=== PATIENT | female | born 2000 | race Caucasian/White ===

== ENCOUNTER 2019-07-28 01:15 | Emergency (ER) | payer BC ==
[~2019-07-28] VITALS: Ht 177.8 cm; Wt 60.5 kg
[2019-07-28 01:27] VITALS: BP 116/75; TEMP 98.2
[2019-07-28] MEDS ORDERED: KAPSPARGO SPRIN25 MG PO (01:56)
[2019-07-28] MEDS ORDERED: SINGULAIR 110 MG/TAB PO (01:56)
[2019-07-28 02:23] LABS: BASO % 0.7 % (0.0-2.0); EOS % 0.5 % (0-4.0); GRAN # 3.7 (1.4-6.5); GRAN % 62.8 % (42.2-75.2); HEMOGLOBIN 14.3 g/dl (12.0-15.0); LYMPH # 1.7 (1.2-3.4); LYMPH % 29.3 % (20.0-51.0); MEAN CELL VOLUME 90 fl (80.0-95.0); MEAN CORPUSCULAR HEMOGLOBIN 30 pg (26.0-32.0); MEAN CORPUSCULAR HGB CONC 33 g/dl (33.0-37.0); MEAN PLATELET VOLUME 10.7 fl (7.4-10.4); MONO # 0.4 (0.1-0.6); MONO % 6.5 % (1.7-9.3); PLATELET COUNT 208 K/mm3 (130-400); RED BLOOD COUNT 4.79 M/mm3 (4.10-5.30); REDCELL DISTRIBUTION WIDTH-CV 12.5 % (11.5-14.5)
[2019-07-28 02:32] LABS: INR 1.1 (0.8-3.0)
[2019-07-28 02:33] LABS: ALANINE AMINOTRANSFERASE 22 U/L (9-52); ALBUMIN 4.8 gm/dL (3.5-5.0); ALCOHOL(ethanol),MEDICAL 150 mg/dL; ALKALINE PHOSPHATASE 57 U/L (50-136); ANION GAP 12 mmol/L (7-16); AST,SGOT 22 U/L (15-37); BILIRUBIN,TOTAL 0.5 mg/dL (0.0-1.0); BLOOD UREA NITROGEN 9 mg/dL (7-17); CALCIUM 9.6 mg/dL (8.4-10.2); CARBON DIOXIDE 26 mmol/L (22-30); CHLORIDE 105 mmol/L (98-107); CREATININE, serum 0.71 (0.52-1.25); GLUCOSE 97 mg/dL (74-106); POTASSIUM 3.5 mmol/L (3.4-5.0); SODIUM 143 mmol/L (137-145); TOTAL PROTEIN 7.7 gm/dL (6.4-8.2)
[2019-07-28 02:49] LABS: PROLACTIN 34.1 ng/mL (3.0-18.6)
[2019-07-28 03:01] LABS: D-DIMER < 200.00 ng/mLDDu (200-230)
[2019-07-28 03:13] LABS: TROPONIN-I < 0.012 ng/mL (0.000-0.035)
[2019-07-28 04:49] VITALS: PULSE 85
== END 2019-07-28 04:49 | disposition home or self-care (01) ==
LOC: COL.ER 01:15
PROVIDERS: Emergency Medicine
DX: F10.129 Alcohol abuse with intoxication, unspecified (principal); G40.89 Other seizures; Y90.6 Blood alcohol level of 120-199 mg/100 ml
CPT/HCPCS: J2060; J2405; J7030

== ENCOUNTER 2019-08-09 22:51 | Emergency (ER) | payer BC ==
[~2019-08-09] VITALS: Ht 177.8 cm; Wt 60.5 kg
[~2019-08-09 22:51] MED LIST: KAPSPARGO SPRIN25 MG PO; SINGULAIR 110 MG/TAB PO
[2019-08-09] MEDS ORDERED: ZITHROMAX500 M2 PO (23:00)
[2019-08-09] MEDS ORDERED: BIRTH CONTROL (23:01)
[2019-08-09] MEDS ORDERED: PROAIR HFA0.09 MG/AC IH (23:01)
[2019-08-09 23:37] LABS: BASO % 0.3 % (0.0-2.0); EOS # 0.1 (0.0-0.7); EOS % 0.9 % (0-4.0); GRAN # 6.4 (1.4-6.5); GRAN % 66.4 % (42.2-75.2); HEMOGLOBIN 11.8 g/dl (12.0-15.0); LYMPH # 2.2 (1.2-3.4); LYMPH % 23.1 % (20.0-51.0); MEAN CELL VOLUME 89 fl (80.0-95.0); MEAN CORPUSCULAR HEMOGLOBIN 30 pg (26.0-32.0); MEAN CORPUSCULAR HGB CONC 34 g/dl (33.0-37.0); MEAN PLATELET VOLUME 10.4 fl (7.4-10.4); MONO # 0.9 (0.1-0.6); MONO % 8.9 % (1.7-9.3); PLATELET COUNT 231 K/mm3 (130-400); RED BLOOD COUNT 3.96 M/mm3 (4.10-5.30); REDCELL DISTRIBUTION WIDTH-CV 12.5 % (11.5-14.5)
[2019-08-09 23:44] LABS: HEMATOCRIT 35.1 % (35.0-45.0)
[2019-08-09 23:50] LABS: ALBUMIN 4.3 gm/dL (3.5-5.0); BILIRUBIN,TOTAL 0.3 mg/dL (0.0-1.0); CALCIUM 9.4 mg/dL (8.4-10.2); CREATININE, serum 0.62 (0.52-1.25); POTASSIUM 3.6 mmol/L (3.4-5.0); TOTAL PROTEIN 7.6 gm/dL (6.4-8.2)
[2019-08-10 01:12] VITALS: BP 111/62; PULSE 94; TEMP 98.7
[2019-08-11] MEDS ORDERED: OMNICEF 300MG300 MG PO (12:19)
[2019-08-11] MEDS ORDERED: ZOFRAN ODT8 MG PO (13:37)
== END 2019-08-10 01:12 | disposition home or self-care (01) ==
LOC: COL.ER 22:51
PROVIDERS: Emergency Medicine
DX: B34.9 Viral infection, unspecified (principal); J45.909 Unspecified asthma, uncomplicated
CPT/HCPCS: J2405; J3010; J7030

== ENCOUNTER 2019-08-11 09:52 | Emergency (ER) | payer BC ==
[~2019-08-11] VITALS: Ht 177.8 cm; Wt 60.5 kg
[~2019-08-11 09:52] MED LIST changes: +BIRTH CONTROL; +PROAIR HFA0.09 MG/AC IH; +ZITHROMAX500 M2 PO
[2019-08-11 09:56] VITALS: TEMP 97.6
[2019-08-11 10:35] LABS: BASO % 0.5 % (0.0-2.0); EOS # 0.2 (0.0-0.7); EOS % 2.3 % (0-4.0); GRAN # 4.1 (1.4-6.5); GRAN % 62.8 % (42.2-75.2); HEMOGLOBIN 11.8 g/dl (12.0-15.0); LYMPH # 1.8 (1.2-3.4); LYMPH % 27.5 % (20.0-51.0); MEAN CELL VOLUME 89 fl (80.0-95.0); MEAN CORPUSCULAR HEMOGLOBIN 31 pg (26.0-32.0); MEAN CORPUSCULAR HGB CONC 34 g/dl (33.0-37.0); MEAN PLATELET VOLUME 10.3 fl (7.4-10.4); MONO # 0.4 (0.1-0.6); MONO % 6.6 % (1.7-9.3); PLATELET COUNT 220 K/mm3 (130-400); RED BLOOD COUNT 3.86 M/mm3 (4.10-5.30); REDCELL DISTRIBUTION WIDTH-CV 12.5 % (11.5-14.5)
[2019-08-11 10:38] LABS: HEMATOCRIT 34.4 % (35.0-45.0)
[2019-08-11 10:49] LABS: ALBUMIN 4.1 gm/dL (3.5-5.0); BILIRUBIN,TOTAL 0.4 mg/dL (0.0-1.0); CALCIUM 9.2 mg/dL (8.4-10.2); CREATININE, serum 0.67 (0.52-1.25); POTASSIUM 3.9 mmol/L (3.4-5.0)
[2019-08-11] MEDS ORDERED: OMNICEF 300MG300 MG PO (12:19)
[2019-08-11 13:36] VITALS: BP 120/83; PULSE 82
[2019-08-11] MEDS ORDERED: ZOFRAN ODT8 MG PO (13:37)
== END 2019-08-11 13:37 | disposition home or self-care (01) ==
LOC: COL.ER 09:52
PROVIDERS: Emergency Medicine
DX: J32.0 Chronic maxillary sinusitis (principal)
CPT/HCPCS: J1200; J1885; J2060; J2765; J7030

== ENCOUNTER 2019-10-29 15:35 | Emergency (ER) | payer BC ==
[~2019-10-29] VITALS: Ht 177.8 cm; Wt 61.4 kg
[~2019-10-29 15:35] MED LIST changes: +OMNICEF 300MG300 MG PO; +ZOFRAN ODT8 MG PO
[2019-10-29] MEDS ORDERED: DOXYCYCLINE HY100 MG PO (15:45)
[2019-10-29 16:27] LABS: BASO # 0.1 (0.0-0.2); BASO % 0.5 % (0.0-2.0); EOS # 0.1 (0.0-0.7); EOS % 0.5 % (0-4.0); GRAN % 76.9 % (42.2-75.2); HEMATOCRIT 38.9 % (35.0-45.0); HEMOGLOBIN 13.1 g/dl (12.0-15.0); LYMPH # 1.5 (1.2-3.4); LYMPH % 16.7 % (20.0-51.0); MEAN CELL VOLUME 88 fl (80.0-95.0); MEAN CORPUSCULAR HEMOGLOBIN 30 pg (26.0-32.0); MEAN CORPUSCULAR HGB CONC 34 g/dl (33.0-37.0); MEAN PLATELET VOLUME 10.5 fl (7.4-10.4); MONO # 0.5 (0.1-0.6); MONO % 5.3 % (1.7-9.3); PLATELET COUNT 203 K/mm3 (130-400); RED BLOOD COUNT 4.42 M/mm3 (4.10-5.30); REDCELL DISTRIBUTION WIDTH-CV 12.4 % (11.5-14.5)
[2019-10-29 17:01] LABS: ALBUMIN 4.6 gm/dL (3.5-5.0); BILIRUBIN,TOTAL 0.8 mg/dL (0.0-1.0); C-REACTIVE PROTEIN 1.4 mg/dL (0.0-0.9); CALCIUM 9.5 mg/dL (8.4-10.2); CREATININE, serum 0.71 (0.52-1.25); POTASSIUM 3.9 mmol/L (3.4-5.0); TOTAL PROTEIN 7.5 gm/dL (6.4-8.2)
[2019-10-29 17:14] LABS: PROLACTIN 37.1 ng/mL (3.0-18.6)
[2019-10-29 18:03] VITALS: TEMP 99.4
[2019-10-29 18:36] VITALS: BP 113/73; PULSE 77
== END 2019-10-29 18:36 | disposition home or self-care (01) ==
LOC: COL.ER 15:35
PROVIDERS: Physician Assistant
DX: I49.8 Other specified cardiac arrhythmias (principal); J45.909 Unspecified asthma, uncomplicated; Z90.89 Acquired absence of other organs; Z90.49 Acquired absence of other specified parts of digestive tract
CPT/HCPCS: J7030

== ENCOUNTER 2019-11-25 04:19 | Emergency (ER) | payer BC ==
[~2019-11-25] VITALS: Ht 177.8 cm; Wt 61.4 kg
[~2019-11-25 04:19] MED LIST changes: +DOXYCYCLINE HY100 MG PO
[2019-11-25] MEDS ORDERED: ZYRTEC 10MG10 MG PO (04:27)
[2019-11-25] MEDS ORDERED: BREO ELLIPTA 21 EACH IH (04:27)
[2019-11-25 05:00] LABS: BASO % 0.5 % (0.0-2.0); EOS # 0.1 (0.0-0.7); EOS % 1.5 % (0-4.0); GRAN # 4.6 (1.4-6.5); GRAN % 57.4 % (42.2-75.2); HEMATOCRIT 38.7 % (35.0-45.0); HEMOGLOBIN 13.1 g/dl (12.0-15.0); LYMPH # 2.6 (1.2-3.4); LYMPH % 32.2 % (20.0-51.0); MEAN CELL VOLUME 90 fl (80.0-95.0); MEAN CORPUSCULAR HEMOGLOBIN 30 pg (26.0-32.0); MEAN CORPUSCULAR HGB CONC 34 g/dl (33.0-37.0); MEAN PLATELET VOLUME 10.7 fl (7.4-10.4); MONO # 0.6 (0.1-0.6); PLATELET COUNT 193 K/mm3 (130-400); RED BLOOD COUNT 4.31 M/mm3 (4.10-5.30); REDCELL DISTRIBUTION WIDTH-CV 13.3 % (11.5-14.5)
[2019-11-25 05:10] LABS: ALBUMIN 4.5 gm/dL (3.5-5.0); BILIRUBIN,TOTAL 0.7 mg/dL (0.0-1.0); C-REACTIVE PROTEIN 1.3 mg/dL (0.0-0.9); CALCIUM 9.3 mg/dL (8.4-10.2); CREATININE, serum 0.75 (0.52-1.25); POTASSIUM 3.9 mmol/L (3.4-5.0); TOTAL PROTEIN 7.3 gm/dL (6.4-8.2)
[2019-11-25 06:24] LABS: COLLECTION METHOD CLEAN CATCH
[2019-11-25 06:41] LABS: PH 7 (5-8); SQUAMOUS EPITHELIAL None Seen /hpf; URINE APPEARANCE Hazy; URINE BACTERIA None Seen /hpf; URINE BILIRUBIN Negative (NEGATIVE); URINE BLOOD Negative (NEGATIVE); URINE COLOR Yellow; URINE GLUCOSE Negative (NEGATIVE); URINE KETONE Negative (NEGATIVE); URINE LEUKOCYTE ESTERASE Negative (NEGATIVE); URINE NITRATE Negative (NEGATIVE); URINE PROTEIN(semi-quant) Negative (NEGATIVE); URINE RBC 0-2 /hpf; URINE UROBILINOGEN Negative (NEGATIVE)
[2019-11-25] MEDS ORDERED: ZOFRAN ODT8 MG PO (06:54)
[2019-11-25 08:05] VITALS: BP 110/72; PULSE 70; TEMP 97
== END 2019-11-25 08:15 | disposition home or self-care (01) ==
LOC: COL.ER 04:19
PROVIDERS: Emergency Medicine
DX: R51 Headache (principal); R11.0 Nausea; R53.81 Other malaise; Z79.51 Long term (current) use of inhaled steroids
CPT/HCPCS: J1200; J2765; J7030